=== PATIENT | male | born 1995 | race Caucasian/White ===

== ENCOUNTER 2020-01-06 13:45 | Emergency (ER) | payer OTHER ==
[~2020-01-06] VITALS: Ht 175.3 cm; Wt 65.8 kg
[~2020-01-06 13:45] MED LIST: HYDROCODON-ACE1 EAC7 PO; IBUPROFEN 800800 MG PO
[2020-01-06] MEDS ORDERED: XANAX 0.5 MG0.5 MG PO (13:58)
[2020-01-06] MEDS ORDERED: TRUVADA1 EAC1 PO (13:59)
[2020-01-06] MEDS ORDERED: ADDERALL 20 MG20 MG PO (13:59)
[2020-01-06 15:04] LABS: HEMATOCRIT 44.7 % (42.0-52.0); HEMOGLOBIN 15.2 gm/dL (14.0-18.0); MCH 31.8 pg (26.0-34.0); MCV 93.5 fL (80.0-100.0); MPV 7.5 fl. (7.2-11.1); NUCLEATED RBCS 0 /100WBC; PLATELET COUNT* 361 thou/uL (150-400); RBC 4.79 mil/uL (4.50-6.00); RDW-CV 12.8 % (10.5-14.5); WBC 20.3 thou/uL (4.0-11.0)
[2020-01-06 15:15] LABS: INR 1.1; PROTIME 10.9 Seconds (9.20-11.50)
[2020-01-06 15:20] LABS: ALBUMIN 4.1 g/dL (3.4-5.0); CALCIUM 8.7 mg/dL (8.5-10.1); CREATININE 0.7 mg/dL (0.6-1.3); POTASSIUM 3.8 mmol/L (3.5-5.1); TOTAL BILIRUBIN 0.3 mg/dL (<0.1-1.0); TOTAL PROTEIN 7.9 g/dL (6.4-8.2)
[2020-01-06 15:41] LABS: ABSOLUTE LYMPHOCYTES 1.4 thou/uL (0.8-5.3); ABSOLUTE MONOCYTES 2.2 thou/uL (0.0-1.2); ABSOLUTE NEUTROPHILS 16.6 thou/uL (1.6-8.1); PLATELET ESTIMATE ADEQUATE
[2020-01-06 15:42] VITALS: BP 124/79
[2020-01-06 15:59] LABS: URINE BLOOD NEGATIVE (Negative); URINE CLARITY CLEAR; URINE COLOR YELLOW; URINE GLUCOSE-RANDOM NEGATIVE (Negative); URINE KETONES NEGATIVE (Negative); URINE LEUKOCYTES-REFLEX NEGATIVE (Negative); URINE NITRITE-REFLEX NEGATIVE (Negative); URINE PROTEIN NEGATIVE (Negative); URINE SPECIFIC GRAVITY 1.025 (1.005-1.030); URINE UROBILINOGEN 0.2 E.U./dl (0.2-1.0)
[2020-01-06 16:01] LABS: ICTOTEST (BILI CONFIRMATORY) Negative (Negative); URINE BILIRUBIN 1+ (Negative)
[2020-01-06] MEDS ORDERED: MEDROLDOSEPACK PO (16:07)
[2020-01-06] MEDS ORDERED: NAPROXEN500 MG PO (16:07)
[2020-01-06 16:10] LABS: AMP/METHAMP POSITIVE (Negative); BARBITURATES Negative (Negative); BENZODIAZEPINES POSITIVE (Negative); COCAINE Negative (Negative); METHADONE Negative (Negative); OPIATES Negative (Negative); PCP Negative (Negative); THC POSITIVE (Negative)
--- NOTE | 2020-01-09 16:40 | EKG ---
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1995 Requested By: Jazmín Charles Order Number: [id number] Hima MD: Jeremías Marquez Measurements Intervals [place] Rate: 88 P: 12 VA: 184 QRS: 38 QRSD: 89 T: 52 QT: 328 QTc: 397 Interpretive Statements Sinus rhythm Probable left atrial enlargement diffuse st elevation, consider pericarditis No previous ECG available for comparison Electronically Signed On 01-09-2020 16:39:09 RECORDS ADMINISTRATOR by Jeremías Marquez [email or web address] <ELECTRONICALLY SIGNED> By: Jeremías Marquez MD, FAC 01/09/20 1639 1350 1350 Jeremías Marquez MD, [facility] /EPI
== END 2020-01-06 16:41 | disposition home or self-care (01) ==
LOC: M.ERS 13:45
PROVIDERS: Personal Emergency Response Attendant
DX: I30.9 Acute pericarditis, unspecified (principal); F41.9 Anxiety disorder, unspecified; F90.9 Attention-deficit hyperactivity disorder, unspecified type; F17.200 Nicotine dependence, unspecified, uncomplicated; Z88.0 Allergy status to penicillin